=== PATIENT | female | born 2000 | race Caucasian/White ===

== ENCOUNTER 2021-02-18 04:55 | Inpatient (IN) | payer OTHER, MEDICAID, SELFPAY ==
[~2021-02-18] VITALS: Ht 162.6 cm; Wt 76.7 kg
[2021-02-18] MEDS ORDERED: OXYTOCIN/0.9 % SODIUM CHLORIDE 1,000 ML IV SCH (05:45)
[2021-02-18] MEDS ORDERED: NALBUPHINE HCL 10 MG/ML AMP IVP PRN (05:45)
[2021-02-18] MEDS ORDERED: TERBUTALINE SULFATE 1 MG/ML VIAL SUBCUT ONE (05:45)
[2021-02-18 06:22] LABS: BASOPHILS # (AUTO) 0.1 K/uL (0.0-0.2); BASOPHILS % (AUTO) 0.5 % (0.0-2.0); EOSINOPHILS # (AUTO) 0.1 K/uL (0.0-0.4); EOSINOPHILS % (AUTO) 1.2 % (0.0-4.0); HEMATOCRIT 36.7 % (36-48); HEMOGLOBIN 12.7 g/dL (12.0-16.0); LYMPHOCYTES # (AUTO) 2.6 K/uL (1.0-5.5); LYMPHOCYTES % (AUTO) 21.9 % (20.5-51.5); MEAN CORPUSCULAR HEMOGLOBIN 31 pg (27-31); MEAN CORPUSCULAR HGB CONC 35 % (32-36); MEAN CORPUSCULAR VOLUME 91 fL (79.0-98.0); MONOCYTES % (AUTO) 8.9 % (1.7-9.3); NEUTROPHILS % (AUTO) 67.5 % (40.0-70.0); PLATELET COUNT (AUTO) 250 K/uL (130-430); RED BLOOD CELL COUNT(AUTO) 4.04 MIL/uL (4.2-6.2); RED CELL DISTRIBUTION WIDTH 13.9 % (9.0-15.0); WHITE BLOOD COUNT (AUTO) 11.8 K/uL (4.5-11.0)
[2021-02-18 06:28] VITALS: BP_SYST 115
[2021-02-18] MEDS: LR 1,000 ML IV SCH ×2 (19:57→23:40)
[2021-02-18] MEDS ORDERED: ROPIVACAINE HCL/PF 0.2% 200 ML ONE (22:28)
[2021-02-18] MEDS ORDERED: fentaNYL CITRATE/PF 100 MCG/2 ML AMP ONE (22:28)
[2021-02-18] MEDS ORDERED: AMPICILLIN SODIUM 2 GM in NS 100 ML IV ONE (22:30)
[2021-02-18] MEDS ORDERED: FENT2mCg/mL-ROPIVA0.2%/NS EPID 200 ML EP SCH (22:45)
[2021-02-18] MEDS ORDERED: LR 500 ML IV ONE (22:45)
[2021-02-18] MEDS ORDERED: AMPICILLIN SODIUM 2 GM VIAL ONE (22:46)
[2021-02-19] MEDS ORDERED: AMPICILLIN SODIUM 1 GM VIAL ONE ×3 (02:18→06:54)
[2021-02-19] MEDS ORDERED: AMPICILLIN SODIUM 1 GM in NS 50 ML IV SCH (02:30)
[2021-02-19] MEDS ORDERED: ROPIVACAINE HCL/PF 0.2% 0 ML ONE (06:31)
[2021-02-19] MEDS: LR 1,000 ML IV SCH (08:29)
[2021-02-19] MEDS ORDERED: HYDROCORTISONE 0.5% CREAM 28.4 GM CREAM.GM. TP PRN (09:45)
[2021-02-19] MEDS ORDERED: MEASLES,MUMPS&RUBELLA VACC/PF 12500 UNIT/0.5 ML VIAL SUBQ PRN (09:45)
[2021-02-19] MEDS ORDERED: OXYCODONE/ACETAMINOPHEN 5-325 TABLET PO PRN ×2 (09:45)
[2021-02-19] MEDS ORDERED: ANUSOL 1 EA SUPP.RECT (PREPARATION H) RC PRN (09:45)
[2021-02-19] MEDS ORDERED: HYDROcodone/ACETAMIN 5-325 MG TAB (NORCO/ VICODIN) PO PRN (09:45)
[2021-02-19] MEDS ORDERED: METHYLERGONOVINE MALEATE 0.2 MG TABLET PO PRN (09:45)
[2021-02-19] MEDS ORDERED: OXYTOCIN/0.9 % SODIUM CHLORIDE 1,000 ML IV ONE (09:45)
[2021-02-19] MEDS ORDERED: NALOXONE HCL 0.4 MG/ML AMP (NARCAN) IVP PRN (09:45)
[2021-02-19] MEDS ORDERED: WITCH HAZEL LEAF 1 MED.PAD MED.PAD TP PRN (09:45)
[2021-02-19] MEDS ORDERED: LANOLIN 7 GM OINT. TP PRN (09:45)
[2021-02-19] MEDS ORDERED: RHO(D) IMMUNE GLOBULIN/MALTOSE 1500 UNITS/1.3 ML (WINHRO) IM PRN (09:45)
[2021-02-19] MEDS ORDERED: DERMOPLAST SPRAY TP PRN (09:45)
[2021-02-19] MEDS ORDERED: DIPH-TET-PERTUS Vaccine 0.5 ML VIAL (ADACEL) I.M. PRN (09:45)
[2021-02-19] MEDS ORDERED: METHYLERGONOVINE MALEATE 0.2 MG/ML AMP IM ONE (10:10)
[2021-02-19] MEDS ORDERED: METHYLERGONOVINE MALEATE 0.2 MG/ML AMP ONE (10:13)
[2021-02-19] MEDS ORDERED: ACETAMINOPHEN 500 MG TABLET PO ONE (10:30)
[2021-02-19] MEDS ORDERED: ACETAMINOPHEN 500 MG TABLET ONE (10:51)
[2021-02-19] MEDS: OXYTOCIN/0.9 % SODIUM CHLORIDE 1,000 ML IV SCH ×2 (10:54→18:19)
[2021-02-19] MEDS: IBUPROFEN 600 MG TABLET PO SCH ×3 (12:18→23:53)
[2021-02-19] MEDS ORDERED: SENNOSIDES/DOCUSATE SODIUM 1 TAB TABLET(SENOKOT-S) PO SCH (21:00)
[2021-02-19] MEDS ORDERED: TEMAZEPAM 15 MG CAPSULE PO PRN (21:00)
[2021-02-20] MEDS: IBUPROFEN 600 MG TABLET PO SCH (06:00)
[2021-02-20 06:47] LABS: BASOPHILS % (AUTO) 0.2 % (0.0-2.0); EOSINOPHILS # (AUTO) 0.1 K/uL (0.0-0.4); EOSINOPHILS % (AUTO) 0.9 % (0.0-4.0); HEMATOCRIT 27.6 % (36-48); HEMOGLOBIN 9.5 g/dL (12.0-16.0); LYMPHOCYTES # (AUTO) 2.6 K/uL (1.0-5.5); LYMPHOCYTES % (AUTO) 18.8 % (20.5-51.5); MEAN CORPUSCULAR HEMOGLOBIN 31 pg (27-31); MEAN CORPUSCULAR HGB CONC 34 % (32-36); MEAN CORPUSCULAR VOLUME 91 fL (79.0-98.0); MONOCYTES # (AUTO) 1.4 K/uL (0.0-1.0); MONOCYTES % (AUTO) 9.7 % (1.7-9.3); NEUTROPHILS # (AUTO) 9.9 K/uL (1.8-7.7); NEUTROPHILS % (AUTO) 70.4 % (40.0-70.0); PLATELET COUNT (AUTO) 187 K/uL (130-430)
[2021-02-20 08:14] LABS: RED BLOOD CELL COUNT(AUTO) 3.02 MIL/uL (4.2-6.2)
[2021-02-20] MEDS ORDERED: DOCUSATE SODIUM 100 MG CAPSULE PO SCH (09:00)
[2021-02-20] MEDS ORDERED: LIGHT MINERAL OIL 10 ML VIAL MC ONE (10:00)
--- NOTE | 2021-02-20 10:57 | NUR ---
Diet education RD provided diet education on the topics of MNT. Handouts from the [employer] were reviewed and provided. RD also answered all of pt's questions. JUNIOR JUAREZ
== END 2021-02-20 17:10 | disposition home or self-care (01) | DRG 807 ==
LOC: OBSVTOIN 04:55 → SPU 04:55
PROVIDERS: ADMIT Specialist; ATTEND Specialist
PROC: 10E0XZZ Delivery of Products of Conception, External Approach (ICD-10-PCS; principal; 2021-02-19)
PROC: 3E0R3BZ Introduction of Anesthetic Agent into Spinal Canal, Percutaneous Approach (ICD-10-PCS; 2021-02-19)
PROC: 00HU33Z Insertion of Infusion Device into Spinal Canal, Percutaneous Approach (ICD-10-PCS; 2021-02-19)
DX: O82 Encounter for cesarean delivery without indication (principal); Z37.0 Single live birth; Z3A.40 40 weeks gestation of pregnancy
CPT/HCPCS: 36415; 85025; 86592; 86886; 86900; 86901; J0290; J2210; J2590; J3010